=== PATIENT | male | born 1990 | race Caucasian/White ===

== ENCOUNTER 2018-03-02 17:57 | Emergency (ER) | payer OTHER ==
[2018-03-02 18:06] VITALS: BP 121/66
[2018-03-02 18:48] LABS: BASOPHILS % (AUTO) 0.4 %; EOSINOPHILS # (AUTO) 0.1 10^3/uL (0.0-0.7); EOSINOPHILS % (AUTO) 1.9 %; HGB - HEMOGLOBIN 14.2 g/dL (14.0-18.0); LYMPHOCYTES # (AUTO) 1.4 10^3/uL (1.5-3.5); LYMPHOCYTES % (AUTO) 22.6 %; MEAN CORPUSCULAR HGB CONC 33.3 g/dL (32.0-36.0); MEAN CORPUSCULAR VOLUME 83.9 fL (80.0-94.0); MEAN PLATELET VOLUME 8.4 fL (7.4-11.4); MONOCYTES # (AUTO) 0.6 10^3/uL (0.0-1.0); MONOCYTES % (AUTO) 10.1 %; PLT - PLATELET COUNT 245 10^3/uL (130-450); RED BLOOD COUNT 5.07 10^6/uL (4.70-6.10); RED CELL DISTRIBUTION WIDTH 13.8 % (12.0-15.0); WHITE BLOOD COUNT 6.2 x10^3/uL (4.8-10.8)
[2018-03-02 18:58] LABS: ALBUMIN 4.2 g/dL (3.2-5.5); ALBUMIN/GLOBULIN RATIO 1.4 (1.0-2.2); BILIRUBIN,TOTAL 0.8 mg/dL (0.2-1.0); CALCIUM 9.5 mg/dL (8.5-10.3); CREATININE 0.9 mg/dL (0.6-1.2); TOTAL PROTEIN 7.3 g/dL (6.7-8.2)
[2018-03-02 19:07] LABS: BILIRUBIN,URINE NEGATIVE (NEGATIVE); GLUCOSE, URINE (UA) NEGATIVE (NEGATIVE); KETONES,URINE (UA) NEGATIVE (NEGATIVE); LEUKOCYTE ESTERASE, URINE NEGATIVE (NEGATIVE); NITRITE,URINE NEGATIVE (NEGATIVE); OCCULT BLOOD,URINE NEGATIVE (NEGATIVE); PROTEIN,URINE NEGATIVE (NEGATIVE); UROBILINOGEN,URINE 0.2 (NORMAL) E.U./dL (NORMAL)
[2018-03-02] MEDS ORDERED: ONDANSETRON ODT 4 MG TABLET TL STA (19:08)
[2018-03-02] MEDS ORDERED: MAG HYDROX/AL HYDROX/SIMETH 30 ML UDC PO STA (19:08)
[2018-03-02 19:09] LABS: CLARITY,URINE CLEAR (CLEAR)
[2018-03-02] MEDS ORDERED: PHENobarb/HYOSCY/ATROPINE/SCOP 5 ML UDC PO STA (19:09)
[2018-03-02] MEDS ORDERED: FAMOTIDINE 20 MG TABLET PO STA (19:09)
[2018-03-02] MEDS ORDERED: LIDOCAINE VISCOUS 2% 15 ML UDC MM STA (19:09)
[2018-03-02] MEDS ORDERED: SUCRALFATE 1 GM/10 ML UDC PO STA (19:09)
--- NOTE | 2018-03-02 19:10 | ED Physician Documentation ---
PD HPI ABD PAIN - Stated complaint Stated Complaint: LUQ PX/VOMITING - Chief complaint Chief Complaint: Abd Pain - History obtained from History obtained from: Patient - History of Present Illness Timing - onset: Last night Timing - duration: Days (1) Timing - details: Gradual onset Pain level max: 5 Pain level now: 4 Quality: Cramping, Aching, Sharp, Indigestion, Pain Location: LUQ Radiation: No: Chest, , Lower back, Left flank, Left shoulder, Right flank, Right shoulder, Upper back Improved by: Vomiting Worsened by: Eating Associated symptoms: Nausea, Vomiting. No: Fever, Hematemesis, Diarrhea, Constipation, Melena, Hematochezia, Dysuria Similar symptoms before: Has not had sx before Recently seen: Not recently seen Review of Systems Constitutional: denies: Fever, Chills Ears: denies: Ear pain Nose: denies: Rhinorrhea / runny nose, Congestion Throat: denies: Sore throat Cardiac: denies: Chest pain / pressure Respiratory: denies: Cough GI: denies: Hematemesis, Bloody / black stool : denies: Dysuria Skin: denies: Rash Musculoskeletal: denies: Neck pain, Back pain Neurologic: denies: Headache PD PAST MEDICAL HISTORY - Past Medical History Past Medical History: No - Past Surgical History Past Surgical History: No - Present Medications Home Medications: Ambulatory Orders Medication Instructions Recorded Confirmed [place]-3/Dha/Epa/Fish Oil [Fish Oil 03/02/18 Gummies] Omeprazole [PriLOSEC] 20 mg PO DAILY #30 capsule 03/02/18 Ondansetron Odt [Zofran] 4 mg TL Q6H PRN #10 tablet 03/02/18 Sucralfate [Carafate] 1 gm PO ACHS #60 tablet 03/02/18 - Allergies Allergies/Adverse Reactions: Allergies Allergy/AdvReac Type Severity Reaction Status Date / Time No Known Drug Allergies Allergy Verified 03/02/18 18:05 - Social History Does the pt smoke?: Yes Smoking Status: Former smoker Does the pt drink ETOH?: No Does the pt have substance abuse?: No - Immunizations Immunizations are current?: Yes - POLST Patient has POLST: No PD ED PE NORMAL - Vitals Vital signs reviewed: Yes - General General: Alert and oriented X 3, No acute distress, Well developed/nourished - HEENT HEENT: Moist mucous membranes - Neck Neck: Supple, no meningeal sign - Cardiac Cardiac: RRR, Strong equal pulses - Respiratory Respiratory: No respiratory distress, Clear bilaterally - Abdomen Abdomen: Soft, Non tender, Non distended - Derm Derm: Warm and dry - Neuro Neuro: Alert and oriented X 3 - Psych Psych: Normal mood, Normal affect Results - Vitals Vitals: Vital Signs - 24 hr 03/02/18 18:02 Temperature 36.7 C Heart Rate 63 Respiratory 16 Rate Blood Pressure 121/66 O2 Saturation 100 Oxygen O2 Source Room air - Labs Labs: Laboratory Tests 03/02/18 03/02/18 03/02/18 18:39 18:39 18:50 WBC 6.2 RBC 5.07 Hgb 14.2 Hct 42.5 MCV 83.9 MCH 28.0 MCHC 33.3 RDW 13.8 Plt Count 245 MPV 8.4 Neut # (Auto) 4.0 Lymph # (Auto) 1.4 L [place] # (Auto) 0.6 Eos # (Auto) 0.1 Baso # (Auto) 0.0 Absolute Nucleated RBC 0.00 Nucleated RBC % 0.1 Sodium 138 Potassium 3.6 Chloride 102 Carbon Dioxide 28 Anion Gap 8.0 BUN 19 Creatinine 0.9 Estimated GFR (MDRD) 103 Glucose 115 H Calcium 9.5 Total Bilirubin 0.8 AST 24 ALT 23 Alkaline Phosphatase 60 Total Protein 7.3 Albumin 4.2 Globulin 3.1 Albumin/Globulin Ratio 1.4 Lipase 25 Urine Color YELLOW Urine Clarity CLEAR Urine pH 7.0 Ur Specific [place] 1.015 Urine Protein NEGATIVE Urine Glucose (UA) NEGATIVE Urine Ketones NEGATIVE Urine Occult Blood NEGATIVE Urine Nitrite NEGATIVE Urine Bilirubin NEGATIVE Urine Urobilinogen 0.2 (NORMAL) Ur Leukocyte Esterase NEGATIVE Ur Microscopic Review NOT INDICATED Urine Culture Comments NOT INDICATED PD MEDICAL DECISION MAKING - ED course Complexity details: reviewed results, re-evaluated patient, considered differential, d/w patient ED course: Patient is a 27-year-old male who presents to the emergency room with what appears to be gastritis. Given a GI cocktail and symptoms resolved. Will place on medication for home and have him follow-up with his doctor. Counseled due to bland diet. No evidence of biliary colic. No evidence of acute cholecystitis or pancreatitis. Patient is very well-appearing, nontoxic. Afebrile. Patient counseled regarding signs and symptoms for which I believe and urgent re-evaluation would be necessary. Patient with good understanding of and agreement to plan and is comfortable going home at this time This document was made in part using voice recognition software. While efforts are made to proofread this document, sound alike and grammatical errors may occur. - Sepsis Event Vital Signs: Vital Signs - 24 hr 03/02/18 18:02 Temperature 36.7 C Heart Rate 63 Respiratory 16 Rate Blood Pressure 121/66 O2 Saturation 100 Oxygen O2 Source Room air Departure - Departure Disposition: 01 Home, Self Care Clinical Impression: Vomiting Qualifiers: Vomiting type: unspecified Vomiting Intractability: non-intractable Nausea presence: with nausea Qualified Code(s): R11.2 - Nausea with vomiting, unspecified Abdominal pain Qualifiers: Abdominal location: left upper quadrant Qualified Code(s): R10.12 - Left upper quadrant pain Condition: Good Instructions: ED PUD Vs Gastritis Follow-Up: RADHA Thomas [Provider Group] - Within 1 week Prescriptions: Omeprazole [PriLOSEC] 20 mg PO DAILY #30 capsule Ondansetron Odt [Zofran] 4 mg TL Q6H PRN #10 tablet PRN Reason: Nausea / Vomiting Sucralfate [Carafate] 1 gm PO ACHS #60 tablet Comments: Return if you worsen. Take the medications as prescribed. Discharge Date/Time: 03/02/18 19:38
== END 2018-03-02 19:38 | disposition home or self-care (01) ==
LOC: ED 17:57
DX: R10.12 Left upper quadrant pain (principal); R11.2 Nausea with vomiting, unspecified; Z87.891 Personal history of nicotine dependence
CPT/HCPCS: 36415; 80053; 81003; 83690; 85025; 99283; A9270; Q0162; 81001; 87086

== ENCOUNTER 2018-05-24 11:13 | Emergency (ER) | payer OTHER ==
[2018-05-24 11:50] VITALS: BP 123/65
[2018-05-24] MEDS ORDERED: DEXAMETHASONE 10 MG/ML VIAL PO STA (13:31)
--- NOTE | 2018-05-24 13:32 | ED Physician Documentation ---
History of Present Illness - Stated complaint Stated Complaint: FLU LIKE SYMPTOMS - Chief complaint Chief Complaint: Heent - History obtained from History obtained from: Patient - History of Present Illness Timing: How many days ago (3) Pain level max: 6 Pain level now: 5 Improved by: Rest Worsened by: Swallowing - Additonal information Additional information: Patient is a 27-year-old male who presents to the emergency department with subjective fevers, coughing, rhinorrhea, congestion and sore throat for the past 3-4 days. States took Advil PM last night. Came here for evaluation as he feels like he is getting worse. [place]. Patient has no other medical problems. Is not on any medications at home. Review of Systems Constitutional: reports: Fever (Subjective). denies: Chills Nose: reports: Rhinorrhea / runny nose, Congestion Throat: reports: Sore throat Respiratory: reports: Cough GI: denies: Abdominal Pain, Nausea, Vomiting, Diarrhea Skin: denies: Rash Musculoskeletal: denies: Neck pain, Back pain Neurologic: denies: Focal weakness, Numbness, Headache PD PAST MEDICAL HISTORY - Past Medical History Past Medical History: No - Past Surgical History Past Surgical History: No - Present Medications Home Medications: Ambulatory Orders Medication Instructions Recorded Confirmed [place]-3/Dha/Epa/Fish Oil [Fish Oil 03/02/18 Gummies] Omeprazole [PriLOSEC] 20 mg PO DAILY #30 capsule 03/02/18 Ondansetron Odt [Zofran] 4 mg TL Q6H PRN #10 tablet 03/02/18 Sucralfate [Carafate] 1 gm PO ACHS #60 tablet 03/02/18 Benzonatate [Tessalon Perle] 100 - 200 mg PO TID PRN #30 capsule 05/24/18 Cetirizine HCl/Pseudoephedrine 1 each PO BID PRN #30 tab.er.12h 05/24/18 [Zyrtec-D Tablet] Ibuprofen [Motrin] 800 mg PO Q8H PRN #30 tablet 05/24/18 - Allergies Allergies/Adverse Reactions: Allergies Allergy/AdvReac Type Severity Reaction Status Date / Time No Known Drug Allergies Allergy Verified 05/24/18 11:50 - Social History Does the pt smoke?: Yes Smoking Status: Former smoker Does the pt drink ETOH?: No Does the pt have substance abuse?: No - Immunizations Immunizations are current?: Yes - POLST Patient has POLST: No PD ED PE NORMAL - Vitals Vital signs reviewed: Yes - General General: Alert and oriented X 3, No acute distress - HEENT HEENT: PERRL, Ears normal, Moist mucous membranes, Other (Moderate posterior oropharyngeal erythema without tonsillar exudates. Uvula midline. Normal phonation. No trismus) - Neck Neck: Supple, no meningeal sign, No adenopathy - Cardiac Cardiac: RRR - Respiratory Respiratory: No respiratory distress, Clear bilaterally - Abdomen Abdomen: Soft, Non tender, Non distended - Back Back: No spinal TTP - Derm Derm: Warm and dry, No rash - Neuro Neuro: Alert and oriented X 3 - Psych Psych: Normal mood, Normal affect Results - Vitals Vitals: Vital Signs - 24 hr 05/24/18 11:42 Temperature 37 C Heart Rate 80 Respiratory 16 Rate Blood Pressure 123/65 O2 Saturation 98 Oxygen O2 Source Room air - Labs Labs: Laboratory Tests 05/24/18 11:51 Group A Strep Rapid Negative PD MEDICAL DECISION MAKING - ED course Complexity details: reviewed results, considered differential, d/w patient ED course: Patient is a 27-year-old male who presents to the emergency department with what appears to be a viral upper respiratory infection. He is very well-appearing, nontoxic. Afebrile. Tolerating p.o. without difficulty here. Rapid strep is negative. Does not appear to be consistent with streptococcal pharyngitis clinically. Will continue supportive care and follow-up with his doctor. Patient counseled regarding signs and symptoms for which I believe and urgent r e-evaluation would be necessary. Patient with good understanding of and agreement to plan and is comfortable going home at this time This document was made in part using voice recognition software. While efforts are made to proofread this document, sound alike and grammatical errors may occur. Departure - Departure Disposition: 01 Home, Self Care Clinical Impression: Viral URI Condition: Good Instructions: ED Viral Syndrome Follow-Up: YOLANDA AGUILAR MD [Primary Care Provider] - Within 3 Days Prescriptions: Benzonatate [Tessalon Perle] 100 - 200 mg PO TID PRN #30 capsule PRN Reason: Cough Cetirizine HCl/Pseudoephedrine [Zyrtec-D Tablet] 1 each PO BID PRN #30 tab.er.12h PRN Reason: Nasal Congestion Ibuprofen [Motrin] 800 mg PO Q8H PRN #30 tablet PRN Reason: PAIN &/OR FEVER Comments: Use the medications as prescribed. Return if you worsen. Discharge Date/Time: 05/24/18 14:34
== END 2018-05-24 14:34 | disposition home or self-care (01) ==
LOC: ED 11:13
DX: J06.9 Acute upper respiratory infection, unspecified (principal); Z87.891 Personal history of nicotine dependence
CPT/HCPCS: 87070; 87430; 99282; 99283